=== PATIENT | female | born 1985 | race Caucasian/White ===

== ENCOUNTER 2017-02-20 13:03 | Emergency (ER) | payer OTHER ==
[~2017-02-20 13:03] MED LIST: ANSAID100 MG PO; BIOTIN2500 MCG PO; BIRTH CONTROL PILL PO; CLARITIN10 M2 PO; CLEOCIN150 MG PO; FLEXERIL10 M1 PO; IRON1 TA1; IRON1 TA1 PO; IRON1 TAB PO; IRON160 M1; MULTIVITAMINS1 EAC3; NORCO1 TAB 10/3 PO; OMNICEF; PHENERGAN25 MG PO; PREDNISONE10 MG PO; PRENATAL1 TA1; VICODIN PO; VITAMIN B12-FO1 EACH PO; VITAMIN C60 MG; VOLTAREN50 MG PO; YASMIN 28 TABLE1 TAB; YAZ 28 TABLET1 TAB PO; ZANTAC150 MG PO; [UNRECOGNIZED DRUG - OTHER]
== END 2017-02-20 13:38 | disposition home or self-care (01) ==
LOC: SED 13:03
DX: S00.33XA Contusion of nose, initial encounter (principal); W50.0XXA Accidental hit or strike by another person, initial encounter; Y93.89 Activity, other specified; Z88.0 Allergy status to penicillin; Z88.1 Allergy status to other antibiotic agents
CPT/HCPCS: 99283